=== PATIENT | male | born 1990 | race Caucasian/White ===

== ENCOUNTER 2023-11-05 22:23 | Emergency (ER) | payer OTHER ==
[2023-11-05 22:29] VITALS: BP 125/80; PULSE 95; RESP 18; TEMP 98.6; BMI 31.4
[2023-11-05] MEDS ORDERED: ERYTHROMYCIN 0.5% OPHTHALMIC OINTMENT 3.5 GM TUBE OU STA (22:52)
[2023-11-05] MEDS ORDERED: ERYTHROMYCIN 0.5% OPHTHALMIC OINTMENT 3.5 GM TUBE ONE (22:53)
== END 2023-11-05 23:04 | disposition home or self-care (01) ==
LOC: JERFT 22:23
DX: H57.89 Other specified disorders of eye and adnexa (principal); H10.33 Unspecified acute conjunctivitis, bilateral
CPT/HCPCS: 99283-25